=== PATIENT | female | born 1965 | race Hispanic/Latino ===

== ENCOUNTER 2017-09-12 17:49 | Emergency (ER) | payer OTHER ==
[2017-09-12 18:09] VITALS: TEMP 98.7
[2017-09-12] MEDS ORDERED: Sodium Chloride 0.9% 1,000 ML IV STA (20:11)
--- NOTE | 2017-09-12 20:27 | ED PDOC ---
HPI: Abdomen Time Seen by Provider: 09/12/17 17:49 Chief Complaint (Nursing): Abdominal Pain Chief Complaint (Provider): Abdominal Pain History Per: Patient History/Exam Limitations: no limitations Onset/Duration Of Symptoms: Days (x3 weeks), Worse Since (yesterday 09/11/17) Current Symptoms Are (Timing): Still Present Additional Complaint(s): 51 year old female with medical history of hypertension, who presents to the emergency department with a complaint of diffuse abdominal pain radiating to back associated with a dry cough status post cholecystectomy performed on . Denied any vomiting or diarrhea. Patient was discharged with prescription for Vicoden, in which, she completed yesterday. She reported going to an Urgent Care earlier today for similar symptoms and given Naprosyn which did not alleviate pain. PMD: Stephon Gallegos MD Past Medical History Reviewed: Historical Data, Nursing Documentation, Vital Signs Vital Signs: Last Vital Signs Temp 98.7 F 09/12/17 18:07 Pulse 71 09/13/17 01:53 Resp 20 09/13/17 01:53 BP 117/74 09/13/17 01:53 Pulse Ox 98 09/13/17 01:53 - Medical History PMH: Gall Bladder Disease, HTN Denies: Chronic Kidney Disease - Surgical History Surgical History: Cholecystectomy Denies: No Surg Hx - Family History Family History: States: Unknown Family Hx - Social History Current smoker - smoking cessation education provided: Yes Alcohol: Social Drugs: Denies - Home Medications Home Medications: Ambulatory Orders Medication Instructions Recorded Ciprofloxacin HCl [Cipro] 500 mg PO BID #20 tab 09/13/17 Metronidazole [Flagyl] 500 mg PO TID #30 tablet 09/13/17 - Allergies Allergies/Adverse Reactions: Allergies Allergy/AdvReac Type Severity Reaction Status Date / Time No Known Allergies Allergy Verified 09/12/17 18:07 Review of Systems ROS Statement: Except As Marked, All Systems Reviewed And Found Negative Respiratory: Positive for: Cough (dry) Gastrointestinal: Positive for: Abdominal Pain (diffuse). Negative for: Vomiting, Diarrhea Musculoskeletal: Positive for: Back Pain Physical Exam - Reviewed Nursing Documentation Reviewed: Yes Vital Signs Reviewed: Yes - Physical Exam Appears: Positive for: Non-toxic, Uncomfortable, In Acute Distress (moderate pain) Cardiovascular/Chest: Positive for: Regular Rate, Rhythm, Chest Non Tender Respiratory: Positive for: Normal Breath Sounds. Negative for: Decreased Breath Sounds, Respiratory Distress Gastrointestinal/Abdominal: Positive for: Soft, Other (clean, dry and intact well-healing laparoscopic scar noted). Negative for: Tenderness Neurologic/Psych: Positive for: Alert (x3), Oriented - Laboratory Results Result Diagrams: 09/12/17 20:44 09/12/17 20:44 - ECG O2 Sat by Pulse Oximetry: 99 (RA) Pulse Ox Interpretation: Normal Medical Decision Making Medical Decision Making: Initial Impression: Abdominal pain S/P cholecystectomy Initial Plan: * CT ABD/pelvis with PO and IV contrast * CMP * CBC * Morphine 4mg IV * NS 1,000ml IV per 999mls/hr * Zofran 4mg IV 0046 CT FINDINGS: Lower thorax: 0.3 cm RIGHT lower lobe nodule. ABDOMEN: Liver: Unremarkable. No mass. Gallbladder and bile ducts: Cholecystectomy. No significant ductal dilation. Minimal stranding within gallbladder fossa. 2.3 x 0.6 x 1.6 cm peripheral hypodensity within gallbladder fossa. Pancreas: No ductal dilation. No mass. Spleen: No splenomegaly. Adrenals: No mass. Kidneys and ureters: No mass. No hydronephrosis. Stomach and bowel: No definite mural thickening. No obstruction. Appendix: Normal caliber. No inflammation. PELVIS: Bladder: Unremarkable. Reproductive: 1.3 x 1.6 x 1.5 cm hypodense lesion within RIGHT ovary. ABDOMEN and PELVIS: Intraperitoneal space: No significant fluid collection. No free air. Bones/joints: Mild degenerative changes of spine. No acute fracture. Soft tissues: Unremarkable. Vasculature: Minimal atherosclerotic disease of iliac arteries. No aneurysm. Lymph nodes: Few subcentimeter short axis lymph nodes within cristino hepatis. IMPRESSION: 1. Small collection within gallbladder fossa. DDX: Seroma, hematoma, abscess. 2. Probable RIGHT ovarian cyst. Consider ultrasound. 3. Pulmonary nodules. For low-risk patients, no follow-up is necessary. For high -risk patients (smoking history or other known risk factors) an optional CT at 12 months could be performed. 4. Incidental/non-acute findings are described above. 0120 Upon re-evaluation, patient feels much better. tolerated po. no pain. She will follow up with her PCP and surgeon secondary to CT results. Patient was made aware of all findings, including the pulmonary nodules. When provider discussed CT with radiologist, radiologist states that they do not think it is an abscess, but a post-surgical hematoma/seroma. Believes there is nothing to do as it is too small to drain and is likely post surgical. Patient will follow up with surgeon. Patient is afebrile, tolerating PO, and has a non-tender abdomen. Physical exam findings all normal. Patient given CT report. pt given rx antibiotics. Patient is stable for discharge home. Scribe Attestation: Documented by Darlene Cope and Milady Prado, acting as a scribe for Brina Mejia MD. Provider Scribe Attestation: All medical record entries made by the Scribe were at my direction and personally dictated by me. I have reviewed the chart and agree that the record accurately reflects my personal performance of the history, physical exam, medical decision making, and the department course for this patient. I have also personally directed, reviewed, and agree with the discharge instructions and disposition. Disposition - Clinical Impression Clinical Impression: Abdominal pain - Disposition Referrals: [facility] [Outside] [facility] [Outside] Disposition: Routine/Home Disposition Time: 01:30 Condition: IMPROVED Additional Instructions: follow up with your primary doctor in 1-2 days as well as your surgeon bring copy of CT report with you return to the ED with any worsening or concerning symptoms. Prescriptions: Ciprofloxacin HCl [Cipro] 500 mg PO BID #20 tab Metronidazole [Flagyl] 500 mg PO TID #30 tablet Instructions: Abdominal Pain (ED) Forms: [employer] (Irish)
[2017-09-12] MEDS ORDERED: Morphine 4 MG/ML VIAL ONE ×2 (20:28→21:32)
[2017-09-12 21:00] LABS: BASO # 0.1 K/uL (0.0-0.2); BASO % 0.6 % (0.0-2.0); EOS # 0.1 K/uL (0.0-0.7); EOS % 0.8 % (0.0-4.0); HEMOGLOBIN 14.7 g/dL (12.0-16.0); LYMPH # 3.3 K/uL (1.0-4.3); LYMPH % 26.9 % (20.0-40.0); MEAN CELL VOLUME 90.6 fl (81.0-99.0); MEAN CORPUSCULAR HEMOGLOBIN 29.9 pg (27.0-31.0); MEAN PLATELET VOLUME 8.5 fl (7.2-11.7); MONO # 0.8 K/uL (0.0-0.8); MONO % 6.4 % (0.0-10.0); NEUT # 8.1 K/uL (1.8-7.0); NEUT % 65.3 % (50.0-75.0); RBC 4.91 Mil/uL (3.80-5.20); RED CELL DISTRIBUTION WIDTH 14.3 % (11.5-14.5); WHITE BLOOD COUNT 12.5 K/uL (4.8-10.8)
[2017-09-12 21:11] LABS: ALB/GLOB RATIO 1.3 (1.0-2.1); ALBUMIN 4.6 g/dL (3.5-5.0); ALT/SGPT 19 U/L (9-52); AST/SGOT 23 U/L (14-36); BLOOD UREA NITROGEN 10 mg/dl (7-17); CALCIUM 9.9 mg/dL (8.4-10.2); GFR AFRICAN-AMERICAN > 60; GFR NON-AFRICAN AMERICAN > 60
[2017-09-12] MEDS ORDERED: Iohexol 240 (50 ml) PO ONE (22:06)
[2017-09-12] MEDS ORDERED: Iohexol 240 (50 ml) ONE (22:29)
[2017-09-12] MEDS ORDERED: Iohexol 300 100 ML IJ ONE (23:46)
[2017-09-12] MEDS ORDERED: Sodium Chloride 0.9% 50 ML IV ONE (23:46)
--- NOTE | 2017-09-13 00:44 | CT ---
EXAM: CT Abdomen and Pelvis With Intravenous Contrast CLINICAL HISTORY: 51 years old, female; Pain; Abdominal pain; Generalized; Prior surgery; Surgery date: <1 month; Surgery type: 08/28/1017 gall bladder removed; Additional info: Abd pain TECHNIQUE: Axial computed tomography images of the abdomen and pelvis with intravenous contrast. All CT scans at this facility use one or more dose reduction techniques, viz.: automated exposure control; ma/kV adjustment per patient size (including targeted exams where dose is matched to indication; i.e. head); or iterative reconstruction technique. Coronal and sagittal reformatted images were created and reviewed. CONTRAST: 90 mL of [id number] administered intravenously. COMPARISON: No relevant prior studies available. FINDINGS: Lower thorax: 0.3 cm RIGHT lower lobe nodule. ABDOMEN: Liver: Unremarkable. No mass. Gallbladder and bile ducts: Cholecystectomy. No significant ductal dilation. Minimal stranding within gallbladder fossa. 2.3 x 0.6 x 1.6 cm peripheral hypodensity within gallbladder fossa. Pancreas: No ductal dilation. No mass. Spleen: No splenomegaly. Adrenals: No mass. Kidneys and ureters: No mass. No hydronephrosis. Stomach and bowel: No definite mural thickening. No obstruction. Appendix: Normal caliber. No inflammation. PELVIS: Bladder: Unremarkable. Reproductive: 1.3 x 1.6 x 1.5 cm hypodense lesion within RIGHT ovary. ABDOMEN and PELVIS: Intraperitoneal space: No significant fluid collection. No free air. Bones/joints: Mild degenerative changes of spine. No acute fracture. Soft tissues: Unremarkable. Vasculature: Minimal atherosclerotic disease of iliac arteries. No aneurysm. Lymph nodes: Few subcentimeter short axis lymph nodes within cristino hepatis. IMPRESSION: 1. Small collection within gallbladder fossa. DDX: Seroma, hematoma, abscess. 2. Probable RIGHT ovarian cyst. Consider ultrasound. 3. Pulmonary nodules. For low-risk patients, no follow-up is necessary. For high-risk patients (smoking history or other known risk factors) an optional CT at 12 months could be performed. 4. Incidental/non-acute findings are described above.
[2017-09-13] MEDS ORDERED: Morphine 4 MG/ML VIAL ONE (00:52)
[2017-09-13 01:54] VITALS: BP 117/74; PULSE 71; RESP 20
[2017-09-14 09:28] VITALS: O2SAT 99
== END 2017-09-13 01:53 | disposition home or self-care (01) ==
LOC: H.ER 17:49
DX: R10.9 Unspecified abdominal pain (principal); I10 Essential (primary) hypertension; Z90.49 Acquired absence of other specified parts of digestive tract
CPT/HCPCS: 74177; 80053; 81025; 85025; 96360; 99284; J1885; J2270; J2405; J7040; Q9966; Q9967